=== PATIENT | female | born 1985 | race Native Hawaiian/Other Pacific Islander ===

== ENCOUNTER 2019-03-17 13:25 | Emergency (ER) | payer OTHER ==
[~2019-03-17] VITALS: Ht 149.9 cm; Wt 48.5 kg
[2019-03-17 13:25] VITALS: TEMP 97.9
[2019-03-17 14:05] LABS: PLATELET COUNT 301 K/uL (152-353)
[2019-03-17 17:56] VITALS: BP 130/80
== END 2019-03-17 18:01 | disposition home or self-care (01) ==
LOC: ED 13:25
PROVIDERS: Family Medicine
DX: F41.8 Other specified anxiety disorders (principal); G47.09 Other insomnia
CPT/HCPCS: 80053; 80307; 80329; 81000; 81025; 85027; 87077; 87086; 87088; 87186; 93005; 99283; 99285

== ENCOUNTER 2023-04-28 17:54 | Emergency (ER) | payer OTHER ==
[~2023-04-28] VITALS: Ht 149.9 cm; Wt 49.9 kg
[2023-04-28 19:00] VITALS: TEMP 98.3
[2023-04-28 20:30] VITALS: BP 137/80
== END 2023-04-28 20:30 | disposition home or self-care (01) ==
LOC: ED 17:54
DX: N63.10 Unspecified lump in the right breast, unspecified quadrant (principal); N64.4 Mastodynia
CPT/HCPCS: 99282